=== PATIENT | male | born 1990 | race Caucasian/White ===

== ENCOUNTER 2017-11-30 12:31 | Emergency (ER) | payer OTHER ==
[2017-11-30] MEDS ORDERED: HYDROCODONE/ACETAMINOPHEN 10-325 MG TABLET PO ONE (14:51)
[2017-11-30] MEDS ORDERED: ONDANSETRON HCL 8 MG TABLET PO ONE (14:54)
--- NOTE | 2017-11-30 14:55 | ER Document Report ---
ED Medical Screen (RME) - General Chief Complaint: Laceration Stated Complaint: HURT HAND Time Seen by Provider: 11/30/17 14:30 Mode of Arrival: Ambulatory TRAVEL OUTSIDE OF THE [place] IN LAST 30 DAYS: No - HPI Notes: 11/30/17 14:55 27-year-old male presents to the ED with complaints of a laceration from a hedge cutter, states he lacerated his left hand is proximal phalanges and "U" to dorsal aspect of left hand near fifth phalange. Tetanus is up-to-date. No [id number] medication has been tried. Denies taking blood thinners. This occurred while he was working. Pain is 8 out of 10, throbbing sharp and constant. Bleeding is controlled. noted pain with flexion, extension, abduction, adduction of 5th phalange with a 2.5 linear laceration to proximal aspect of his phalanges and a 2 cm "U" laceration to the dorsal aspect left hand here for distal motor and sensory function in KIM[place]. [employer] + 2 BUE equally. Snuffbox tenderness negativ. radial pulses + 2 BUE equally. No deformity noted of hand or wrist bilaterally. Normal flexion, extension, ulnar/radial deviation. Negative kanavels sign. No vascular compromise. full motor and sensory function with medial, radial and ulnar nerves bilaterally and equally. I have greeted and performed a rapid initial assessment of this patient. A comprehensive ED assessment and evaluation of the patient, analysis of test results and completion of medical decision making process will be conducted by an additional ED providers. - Related Data Allergies/Adverse Reactions: No Known Allergies Allergy (Verified 11/30/17 12:36) Past Medical History - Social History Chew tobacco use (# tins/day): No Frequency of alcohol use: Occasional Drug Abuse: None Renal/ Medical History: Denies: Hx Peritoneal Dialysis Past Surgical History: Reports: Hx Orthopedic Surgery - right ankle - Immunizations Hx Diphtheria, Pertussis, Tetanus Vaccination: Yes Physical Exam - Vital signs Vitals: Temp Pulse Resp BP Pulse Ox 98.1 F 84 20 131/60 H 97 11/30/17 12:55 11/30/17 12:55 11/30/17 12:55 11/30/17 12:55 11/30/17 12:55 Course - Vital Signs Vital signs: Temp Pulse Resp BP Pulse Ox 98.1 F 84 20 131/60 H 97 11/30/17 12:55 11/30/17 12:55 11/30/17 12:55 11/30/17 12:55 11/30/17 12:55
[2017-11-30] MEDS ORDERED: LIDOCAINE 1% INJ-PF (10 MG/ML) 30 ML SDV INJ ONE (15:02)
--- NOTE | 2017-11-30 16:11 | RADIOLOGY REPORT (SQ) ---
EXAM DESCRIPTION: HAND LEFT 3 VIEWS COMPLETED DATE/TIME: 11/30/2017 3:59 pm REASON FOR STUDY: hand lac COMPARISON: None. EXAM PARAMETERS: NUMBER OF VIEWS: Three views. TECHNIQUE: AP, lateral and oblique radiographic images acquired of the left hand. LIMITATIONS: None. FINDINGS: MINERALIZATION: Normal. BONES: No acute fracture or dislocation. No worrisome bone lesions. JOINTS: No effusions. SOFT TISSUES: No soft tissue swelling. No foreign body. OTHER: No other significant finding. IMPRESSION: NEGATIVE STUDY OF THE LEFT HAND. NO RADIOGRAPHIC EVIDENCE OF ACUTE INJURY. TECHNICAL DOCUMENTATION: JOB ID: [id number] [employer]- All Rights Reserved Reading location - IP/workstation name: [email or web address]
--- NOTE | 2017-11-30 17:20 | ER Document Report ---
ED General - General Chief Complaint: Laceration Stated Complaint: HURT HAND Time Seen by Provider: 11/30/17 14:30 Mode of Arrival: Ambulatory Information source: Patient TRAVEL OUTSIDE OF THE [place] IN LAST 30 DAYS: No - Related Data Allergies/Adverse Reactions: No Known Allergies Allergy (Verified 11/30/17 12:36) Past Medical History - Social History Smoking Status: Current Every Day Smoker Chew tobacco use (# tins/day): No Frequency of alcohol use: Occasional Drug Abuse: None Family History: Reviewed & Not Pertinent Patient has suicidal ideation: No Patient has homicidal ideation: No Renal/ Medical History: Denies: Hx Peritoneal Dialysis Past Surgical History: Reports: Hx Orthopedic Surgery - right ankle - Immunizations Hx Diphtheria, Pertussis, Tetanus Vaccination: Yes Physical Exam - Vital signs Vitals: Temp Pulse Resp BP Pulse Ox 98.1 F 84 20 131/60 H 97 11/30/17 12:55 11/30/17 12:55 11/30/17 12:55 11/30/17 12:55 11/30/17 12:55 Course - Vital Signs Vital signs: Temp Pulse Resp BP Pulse Ox 98.1 F 84 20 131/60 H 97 11/30/17 12:55 11/30/17 12:55 11/30/17 12:55 11/30/17 12:55 11/30/17 12:55 Discharge - Discharge Clinical Impression: Hand laceration Qualifiers: Encounter type: initial encounter Foreign body presence: without foreign body Laterality: left Qualified Code(s): S61.412A - Laceration without foreign body of left hand, initial encounter Condition: Stable Disposition: HOME, SELF-CARE Instructions: Antibiotic Ointment Protection ([facility]), Laceration Care ([facility]), Family Physicians / Practices Additional Instructions: Keep wound clean and dry. Apply antibiotic ointment to the wound. Sutures out in 12-14 days. Take Keflex antibiotic in case of worsening pain or swelling or redness. Take ibuprofen as needed for pain. Prescriptions: Cephalexin Monohydrate [Keflex 500 mg Capsule] 500 mg PO Q6H 7 Days capsule Forms: Return to Work
[2017-11-30 17:43] VITALS: BP 138/74
== END 2017-11-30 17:48 | disposition home or self-care (01) ==
LOC: ER 12:31
PROC: 0HQGXZZ Repair Left Hand Skin, External Approach (ICD-10-PCS; principal; 2017-11-30)
DX: S61.412A Laceration without foreign body of left hand, initial encounter (principal); F17.200 Nicotine dependence, unspecified, uncomplicated; W29.3XXA Contact with powered garden and outdoor hand tools and machinery, initial encounter
CPT/HCPCS: 99283; 73130; 12002; J3490; S0119